=== PATIENT | female | born 1980 | race Caucasian/White ===

== ENCOUNTER → 2025-07-27 09:38 | Outpatient (CLI) | payer MEDICARE, OTHER, SELFPAY ==
[2025-07-27 10:46] LABS: Add Manual Diff / Slide Review NO; Hematocrit 38.7 % (36-46); Hemoglobin 13.4 g/dL (12.0-16.0); Lymphocytes Absolute Auto 3700 /uL (1100-4500); Mean Corpuscular HGB Conc 34.6 % (30-36); Mean Corpuscular Hemoglobin 32.5 PG (26-34); Mean Corpuscular Volume 93.8 fL (80-100); Platelet Count 185 X10^3/uL (150-400)
[2025-07-27 12:07] LABS: Alanine Aminotransferase 14 IU/L (<35); Albumin 4.2 g/dL (3.5-5.0); Albumin Globulin Ratio 1.2 (1.0-2.8); Alkaline Phosphatase 53 U/L (38-126); Blood Urea Nitrogen 9 mg/dL (7-17); Calcium 9.5 mg/dL (8.4-10.2); Carbon Dioxide 33 mmol/L (22-32); Chloride 98 mmol/L (98-107); Estimated Glomerular Filt Rate > 60 mL/min (>60); Globulin 3.5 g/dL (1.7-4.1); Glucose 97 mg/dL (70-99); HEMOLYSIS < 15 (0-50); Potassium 4.4 mmol/L (3.4-5.1); Sodium 135 mmol/L (137-145); Total Protein 7.7 g/dL (6.3-8.2)
[2025-07-27 12:41] LABS: TSH w/ Reflex to FT4 0.35 uIU/mL (0.47-4.68)
[2025-07-27 13:25] LABS: Appearance Urine UA CLEAR; Bilirubin Urine UA NEGATIVE (NEGATIVE); Color Urine UA YELLOW; Glucose Urine UA NEGATIVE (Negative); Ketones Urine UA NEGATIVE (NEGATIVE); Leukocyte Esterase Urine UA NEGATIVE (NEGATIVE); Nitrite Urine UA NEGATIVE (Negative); Occult Blood Urine UA NEGATIVE (Negative); Protein Urine UA NEGATIVE (Negative); Specific Gravity Urine UA <=1.005 (1.000-1.035); Urobilinogen Urine UA 0.2 E.U./dL (0.2)
[2025-07-27 13:35] LABS: pH Urine UA 6.5 (4.5-8.0)
[2025-07-27 13:43] LABS: Culture Indicated Urine Cult Not Indicated
[2025-07-27 14:18] LABS: Free T4, Direct Thyroxine 1.46 ng/dL (0.78-2.19)
== END ==
PROVIDERS: PCP Family Medicine; Referring Provider Family Medicine; Visit Provider Family Medicine
DX: N17.9 Acute kidney failure, unspecified (principal); E03.9 Hypothyroidism, unspecified; R35.0 Frequency of micturition
CPT/HCPCS: 36415; 80053; 81001; 82043; 82570; 84439; 84443; 85025

== ENCOUNTER 2025-10-08 15:13 | Emergency (ER) | payer MEDICARE, OTHER, SELFPAY ==
[2025-10-08 15:35] VITALS: BP 116/68; PULSE 99; RESP 16; TEMP 36.1; O2SAT 95; BMI 27.3
[2025-10-08 16:32] LABS: Culture Indicated Urine Cult Not Indicated
[2025-10-08 16:47] LABS: Add Manual Diff / Slide Review NO; Hematocrit 38.0 % (36-46); Hemoglobin 12.9 g/dL (12.0-16.0); Lymphocytes Absolute Auto 1600 /uL (1100-4500); Mean Corpuscular HGB Conc 34.0 % (30-36); Mean Corpuscular Hemoglobin 32.7 PG (26-34); Mean Corpuscular Volume 96.1 fL (80-100); Platelet Count 260 X10^3/uL (150-400)
[2025-10-08 17:21] LABS: Alanine Aminotransferase 27 IU/L (<35); Albumin 4.1 g/dL (3.5-5.0); Albumin Globulin Ratio 1.1 (1.0-2.8); Alkaline Phosphatase 56 U/L (38-126); Blood Urea Nitrogen 11 mg/dL (7-17); Calcium 9.1 mg/dL (8.4-10.2); Carbon Dioxide 37 mmol/L (22-32); Chloride 99 mmol/L (98-107); Estimated Glomerular Filt Rate > 60 mL/min (>60); Globulin 3.9 g/dL (1.7-4.1); Glucose 107 mg/dL (70-99); HEMOLYSIS < 15 (0-50); Lipase 113 U/L (23-300); Potassium 4.6 mmol/L (3.4-5.1); Sodium 140 mmol/L (137-145); Total Protein 8.0 g/dL (6.3-8.2)
[2025-10-08 21:15] VITALS: BP 119/75; PULSE 96; RESP 16; O2SAT 96
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
--- NOTE | 2025-10-08 23:38 | DI.CT.S_ITS ---
PROCEDURE: CT ABDOMEN PELVIS W CON INDICATIONS: abdominal pain and bloating TECHNIQUE: After the administration of intravenous contrast, axial sections acquired from the lung bases to the pubic symphysis. Coronal and sagittal reformats were performed. For radiation dose reduction, the following was used: automated exposure control, adjustment of mA and/or kV according to patient size. COMPARISON: None. FINDINGS: Image quality: Diagnostic Lower chest: Basal atelectasis. Mildly thick-walled distal esophagus partially seen. Normal heart size. Liver: Unremarkable Gallbladder and biliary system: Unremarkable gallbladder. Borderline ectatic CBD at 6 to 7 mm Pancreas: No ductal dilation Spleen: Nonenlarged Adrenals: No discrete nodules Kidneys: No solid renal mass. Multiple subcentimeter lesions are present in the left kidney too small to characterize, most commonly cysts. Vessels and lymph nodes: The main portal vein is patent. No abdominal aortic aneurysm. No lymph nodes enlarged by size criteria. Bowel and peritoneum: Nondilated appendix. Diffuse moderate dilation of the small bowel loops, with relatively under distended fecalized terminal ileum. Moderate colonic fecal loading also seen. No drainable abscess or ascites. Body wall: Unremarkable Pelvis: Under distended urinary bladder. Reproductive organs are not well assessed on CT, no gross abnormality. Bones: Lumbosacral degenerative changes. IMPRESSION: Moderate diffuse distention of the small bowel loops. The terminal ileum shows mild fecalization and is relatively under distended. Findings likely represent partial obstruction versus diffuse ileus. No drainable abscess or ascites. Borderline ectatic CBD at 6 to 7 mm. Correlate LFTs. Other findings above. Dictated by: Isai Stover M.D. on 10/09/2025 at 0:30 Approved by: Isai Stover M.D. on 10/09/2025 at 0:35
[2025-10-09 00:26] VITALS: PULSE 99; O2SAT 87
[2025-10-09 00:27] VITALS: BP 129/64; PULSE 97; RESP 16; O2SAT 90
[2025-10-09] MEDS: ONDANSETRON 4 MG/2 ML INJ IV (00:27)
[2025-10-09] MEDS: SODIUM CHLORIDE 0.9% 1,000 ML 1000 ML IV (00:27)
[2025-10-09] MEDS: MAGNESIUM CITRATE 300 ML SOLUTION PO (02:08)
== END 2025-10-09 02:15 | disposition home or self-care (01) ==
PROVIDERS: Family Medicine; Emergency Provider Emergency Medicine; PCP Family Medicine
DX: K59.09 Other constipation (principal); R11.2 Nausea with vomiting, unspecified
CPT/HCPCS: 36415; 74177; 80053; 81003; 81015; 81025; 83690; 85025; 96374; 99284; J2405; J7030; Q9967